=== PATIENT | male | born 1955 | race African-American/Black ===

== ENCOUNTER 2018-04-21 17:15 | Inpatient (IN) ==
--- NOTE | 2018-04-21 18:18 | ED ---
HPI General Chief Complaint: Psychiatric Symptoms Stated Complaint: Psych eval / [facility] Time Seen by Provider: 04/22/18 15:40 Source: patient Mode of arrival: other ([facility]) Limitations: no limitations History of Present Illness HPI Narrative: 63-year-old male with a history of schizophrenia, cocaine use, diabetes, antisocial personality disorder, presents to the emergency department via [facility] for evaluation as a Carter act. Patient says he has not had any of his medications in 2-3 weeks because "the police took him". He does admit to suicidal ideations and states that he would like the police to shoot him. He denies homicidal ideations however. Denies recent alcohol or illicit drug use. His only complaint today is right hip pain. Denies falls and states we' have seen him for it before' and had xrays. MD complaint: suicidal ideation and feels depressed Onset (ago): week(s) Duration: constant History of same: Yes Relieving factors: none Exacerbating factors: medication and therapy Context: not taking psychiatric medications Associated psychiatric symptoms: suicidal ideation Associated symptoms: denies other symptoms Treatments prior to arrival: none If self harm: admits thoughts of self harm Related Data Home Medications Medication Instructions Recorded Confirmed quetiapine [Seroquel] 50 mg PO DAILY 04/21/18 04/21/18 quetiapine [Seroquel] 400 mg PO HS 04/21/18 04/21/18 sertraline [Zoloft] 50 mg PO DAILY 04/21/18 04/21/18 Allergies Allergy/AdvReac Type Severity Reaction Status Date / Time No Known Allergies Allergy Unverified 04/21/18 17:39 Review of Systems ROS: all other systems reviewed are negative [facility] Social History Social History Substance History: Active Abuse Second Hand Smoke Exposure: Yes Smoking Status: Current every day smoker Tobacco Type: Cigarettes How Often Do You Have a Drink Containing Alcohol: Never Recent Travel in [place] within the Last 8 Weeks: No Recent Out of Country Travel within the Last 8 Weeks: No Substance Abuse Detail Marijuana: Substance Use Status: Active Route Used Substance Abuse: Inhalation Last Used: 04/18/18 Crack/Cocaine: Substance Use Status: Active Route Used Substance Abuse: Inhalation Last Used: 04/18/18 Immunization History Tetanus Immunization: Unsure Hx Influenza Vaccine This Season: No Exam Narrative Exam Narrative: GENERAL: Well-developed, well-nourished, anxious SKIN: Focused skin assessment warm/dry. HEAD: Atraumatic. Normocephalic. EYES: Pupils equal and round. No scleral icterus. No injection or drainage. ENT: No nasal bleeding or discharge. Mucous membranes pink and moist. NECK: Trachea midline. No JVD. No lymphadenopathy. No midline tenderness. CARDIOVASCULAR: Regular rate and rhythm. No murmur appreciated. RESPIRATORY: No accessory muscle use. Clear to auscultation. Breath sounds equal bilaterally. Slight wheezing in the left lung dukes GASTROINTESTINAL: Abdomen soft, non-tender, nondistended. Hepatic and splenic margins not palpable. MUSCULOSKELETAL: No obvious deformities. No clubbing. No cyanosis. No edema. TTP to left lateral hip. difficulty with flexion at the hip secondary to pain. NEUROLOGICAL: Awake and alert. No obvious cranial nerve deficits. Motor grossly within normal limits. Normal speech. PSYCHIATRIC: Appropriate mood and affect; Course Initial Documented Vital Signs Temperature 98.2 F 04/21/18 21:00 Pulse Rate 72 04/21/18 21:00 Respiratory Rate 18 04/21/18 21:00 Blood Pressure 183/100 H 04/21/18 21:00 Pulse Oximetry 97 04/21/18 21:00 Last Documented Vital Signs Temperature 97.3 F L 04/25/18 05:49 Pulse Rate 55 L 04/25/18 05:49 Respiratory Rate 16 04/25/18 05:49 Blood Pressure 116/58 L 04/25/18 05:49 Pulse Oximetry 98 04/25/18 05:49 Medical Decision Making [facility] Narrative Medical decision making narrative: 63y male presents to the ED as a BA. Labs were ordered for evaluation. CXR ordered as there was some slight wheezing on exam. Pt c/o hip pain for 'a while' but denies recent trauma. Ordered repeat for evaluation as previous xray demonstrated borderline avascular necrosis. Ensure no hip fracture. The patient was signed out to me at end of shift with lab work pending. 63 YO M under BA with suicidal ideations. History of avascular necrosis. Patient is hypertensive on presentation. Patient takes amlodipine at home, noncompliant secondary to recent arrest. He was administered 10 mg amlodipine by mouth. CBC , CMP without any acute findings. Tox screen positive for cocaine. Patient is medically clear for psychiatric evaluation. Medical Screen Exam Complete: Yes Emergency Medical Condition: Yes Differential Diagnosis Differential Diagnosis: Medication noncompliance, schizophrenia, malingering, depression Medical Records Medical records reviewed: Yes I reviewed the patient's medical records. Last hip xray 08/2017. Will repeat for further evaluation. Lab Data Result diagrams: 04/21/18 19:50 04/23/18 06:56 Lab Results 04/21/18 04/21/18 04/21/18 Range/Units 18:01 19:50 19:50 WBC 6.7 (4.0-11.0) th/mm3 RBC 4.42 L (4.50-5.90) mil/mm3 Hgb 13.9 (13.0-17.0) gm/dL Hct 42.8 (39.0-51.0) % MCV 96.9 (80.0-100.0) fL MCH 31.5 (27.0-34.0) pg MCHC 32.5 (32.0-36.0) % RDW 14.3 (11.6-17.2) % Plt Count 291 (150-450) th/mm3 MPV 7.4 (7.0-11.0) fL Neut % (Auto) 46.6 (16.0-70.0) % Lymph % (Auto) 38.3 (9.0-44.0) % [place] % (Auto) 9.4 H (0.0-8.0) % Eos % (Auto) 4.9 H (0.0-4.0) % Baso % (Auto) 0.8 (0.0-2.0) % Neut # (Auto) 3.1 (1.8-7.7) th/mm3 Lymph # (Auto) 2.6 (1.0-4.8) th/mm3 [place] # (Auto) 0.6 (0.0-0.9) th/mm3 Eos # (Auto) 0.3 (0.0-0.4) th/mm3 Baso # (Auto) 0.1 (0.0-0.2) th/mm3 WBC Differential . Differential Comment Auto diff final Sodium 140 (136-145) meq/L Potassium 4.0 (3.5-5.1) meq/L Chloride 110 H (98-107) meq/L Carbon Dioxide 23.7 (21.0-32.0) meq/L Anion Gap 6 (5-15) meq/L BUN 17 (7-18) mg/dL Creatinine 1.81 H (0.60-1.30) mg/dL Estimated GFR 46 L (>89) mL/min POC Glucose 102 (68-110) mg/dl Random Glucose 72 L (74-106) mg/dL Hemoglobin A1c (4.3-6.0) % Calcium 8.6 (8.5-10.1) mg/dL Total Bilirubin 0.3 (0.2-1.0) mg/dL AST 29 (15-37) U/L ALT 31 (12-78) U/L Alkaline Phosphatase 98 (45-117) U/L Total Protein 8.1 (6.4-8.2) g/dL Albumin 3.2 L (3.4-5.0) g/dL Triglycerides (42-150) mg/dL Cholesterol (120-200) mg/dL LDL Cholesterol, Calc (0-99) mg/dL HDL Cholesterol (40.0-60.0) mg/dL Cholesterol/HDL Ratio Ratio TSH 1.030 (0.358-3.740) uIU/mL Urine Opiates Screen (Neg) Ur Barbiturates Screen (Neg) Ur Amphetamines Screen (Neg) U Benzodiazepines Scrn (Neg) Urine Cocaine Screen (Neg) U Cannabinoids Screen (Neg) Serum Alcohol Less than 3 (0-5) mg/dL 04/21/18 04/22/18 04/22/18 Range/Units 21:20 02:31 09:35 WBC (4.0-11.0) th/mm3 RBC (4.50-5.90) mil/mm3 Hgb (13.0-17.0) gm/dL Hct (39.0-51.0) % MCV (80.0-100.0) fL MCH (27.0-34.0) pg MCHC (32.0-36.0) % RDW (11.6-17.2) % Plt Count (150-450) th/mm3 MPV (7.0-11.0) fL Neut % (Auto) (16.0-70.0) % Lymph % (Auto) (9.0-44.0) % [place] % (Auto) (0.0-8.0) % Eos % (Auto) (0.0-4.0) % Baso % (Auto) (0.0-2.0) % Neut # (Auto) (1.8-7.7) th/mm3 Lymph # (Auto) (1.0-4.8) th/mm3 [place] # (Auto) (0.0-0.9) th/mm3 Eos # (Auto) (0.0-0.4) th/mm3 Baso # (Auto) (0.0-0.2) th/mm3 WBC Differential Differential Comment Sodium (136-145) meq/L Potassium (3.5-5.1) meq/L Chloride (98-107) meq/L Carbon Dioxide (21.0-32.0) meq/L Anion Gap (5-15) meq/L BUN (7-18) mg/dL Creatinine (0.60-1.30) mg/dL Estimated GFR (>89) mL/min POC Glucose 94 90 (68-110) mg/dl Random Glucose (74-106) mg/dL Hemoglobin A1c (4.3-6.0) % Calcium (8.5-10.1) mg/dL Total Bilirubin (0.2-1.0) mg/dL AST (15-37) U/L ALT (12-78) U/L Alkaline Phosphatase (45-117) U/L Total Protein (6.4-8.2) g/dL Albumin (3.4-5.0) g/dL Triglycerides (42-150) mg/dL Cholesterol (120-200) mg/dL LDL Cholesterol, Calc (0-99) mg/dL HDL Cholesterol (40.0-60.0) mg/dL Cholesterol/HDL Ratio Ratio TSH (0.358-3.740) uIU/mL Urine Opiates Screen Neg (Neg) Ur Barbiturates Screen Neg (Neg) Ur Amphetamines Screen Neg (Neg) U Benzodiazepines Scrn Neg (Neg) Urine Cocaine Screen Pos H (Neg) U Cannabinoids Screen Neg (Neg) Serum Alcohol (0-5) mg/dL 04/22/18 04/22/18 04/23/18 Range/Units 11:21 19:50 06:34 WBC (4.0-11.0) th/mm3 RBC (4.50-5.90) mil/mm3 Hgb (13.0-17.0) gm/dL Hct (39.0-51.0) % MCV (80.0-100.0) fL MCH (27.0-34.0) pg MCHC (32.0-36.0) % RDW (11.6-17.2) % Plt Count (150-450) th/mm3 MPV (7.0-11.0) fL Neut % (Auto) (16.0-70.0) % Lymph % (Auto) (9.0-44.0) % [place] % (Auto) (0.0-8.0) % Eos % (Auto) (0.0-4.0) % Baso % (Auto) (0.0-2.0) % Neut # (Auto) (1.8-7.7) th/mm3 Lymph # (Auto) (1.0-4.8) th/mm3 [place] # (Auto) (0.0-0.9) th/mm3 Eos # (Auto) (0.0-0.4) th/mm3 Baso # (Auto) (0.0-0.2) th/mm3 WBC Differential Differential Comment Sodium (136-145) meq/L Potassium (3.5-5.1) meq/L Chloride (98-107) meq/L Carbon Dioxide (21.0-32.0) meq/L Anion Gap (5-15) meq/L BUN (7-18) mg/dL Creatinine (0.60-1.30) mg/dL Estimated GFR (>89) mL/min POC Glucose 76 166 H 74 (68-110) mg/dl Random Glucose (74-106) mg/dL Hemoglobin A1c (4.3-6.0) % Calcium (8.5-10.1) mg/dL Total Bilirubin (0.2-1.0) mg/dL AST (15-37) U/L ALT (12-78) U/L Alkaline Phosphatase (45-117) U/L Total Protein (6.4-8.2) g/dL Albumin (3.4-5.0) g/dL Triglycerides (42-150) mg/dL Cholesterol (120-200) mg/dL LDL Cholesterol, Calc (0-99) mg/dL HDL Cholesterol (40.0-60.0) mg/dL Cholesterol/HDL Ratio Ratio TSH (0.358-3.740) uIU/mL Urine Opiates Screen (Neg) Ur Barbiturates Screen (Neg) Ur Amphetamines Screen (Neg) U Benzodiazepines Scrn (Neg) Urine Cocaine Screen (Neg) U Cannabinoids Screen (Neg) Serum Alcohol (0-5) mg/dL 04/23/18 04/23/18 04/23/18 Range/Units 06:56 06:56 11:29 WBC (4.0-11.0) th/mm3 RBC (4.50-5.90) mil/mm3 Hgb (13.0-17.0) gm/dL Hct (39.0-51.0) % MCV (80.0-100.0) fL MCH (27.0-34.0) pg MCHC (32.0-36.0) % RDW (11.6-17.2) % Plt Count (150-450) th/mm3 MPV (7.0-11.0) fL Neut % (Auto) (16.0-70.0) % Lymph % (Auto) (9.0-44.0) % [place] % (Auto) (0.0-8.0) % Eos % (Auto) (0.0-4.0) % Baso % (Auto) (0.0-2.0) % Neut # (Auto) (1.8-7.7) th/mm3 Lymph # (Auto) (1.0-4.8) th/mm3 [place] # (Auto) (0.0-0.9) th/mm3 Eos # (Auto) (0.0-0.4) th/mm3 Baso # (Auto) (0.0-0.2) th/mm3 WBC Differential Differential Comment Sodium 141 (136-145) meq/L Potassium 3.9 (3.5-5.1) meq/L Chloride 106 (98-107) meq/L Carbon Dioxide 25.8 (21.0-32.0) meq/L Anion Gap 9 (5-15) meq/L BUN 23 H (7-18) mg/dL Creatinine 1.72 H (0.60-1.30) mg/dL Estimated GFR 49 L (>89) mL/min POC Glucose 86 (68-110) mg/dl Random Glucose 76 (74-106) mg/dL Hemoglobin A1c 6.1 H (4.3-6.0) % Calcium 8.4 L (8.5-10.1) mg/dL Total Bilirubin (0.2-1.0) mg/dL AST (15-37) U/L ALT (12-78) U/L Alkaline Phosphatase (45-117) U/L Total Protein (6.4-8.2) g/dL Albumin (3.4-5.0) g/dL Triglycerides 73 (42-150) mg/dL Cholesterol 156 (120-200) mg/dL LDL Cholesterol, Calc 81 (0-99) mg/dL HDL Cholesterol 60.6 H (40.0-60.0) mg/dL Cholesterol/HDL Ratio 2.57 Ratio TSH 1.250 (0.358-3.740) uIU/mL Urine Opiates Screen (Neg) Ur Barbiturates Screen (Neg) Ur Amphetamines Screen (Neg) U Benzodiazepines Scrn (Neg) Urine Cocaine Screen (Neg) U Cannabinoids Screen (Neg) Serum Alcohol (0-5) mg/dL 04/23/18 04/23/18 04/24/18 Range/Units 16:04 20:06 05:52 WBC (4.0-11.0) th/mm3 RBC (4.50-5.90) mil/mm3 Hgb (13.0-17.0) gm/dL Hct (39.0-51.0) % MCV (80.0-100.0) fL MCH (27.0-34.0) pg MCHC (32.0-36.0) % RDW (11.6-17.2) % Plt Count (150-450) th/mm3 MPV (7.0-11.0) fL Neut % (Auto) (16.0-70.0) % Lymph % (Auto) (9.0-44.0) % [place] % (Auto) (0.0-8.0) % Eos % (Auto) (0.0-4.0) % Baso % (Auto) (0.0-2.0) % Neut # (Auto) (1.8-7.7) th/mm3 Lymph # (Auto) (1.0-4.8) th/mm3 [place] # (Auto) (0.0-0.9) th/mm3 Eos # (Auto) (0.0-0.4) th/mm3 Baso # (Auto) (0.0-0.2) th/mm3 WBC Differential Differential Comment Sodium (136-145) meq/L Potassium (3.5-5.1) meq/L Chloride (98-107) meq/L Carbon Dioxide (21.0-32.0) meq/L Anion Gap (5-15) meq/L BUN (7-18) mg/dL Creatinine (0.60-1.30) mg/dL Estimated GFR (>89) mL/min POC Glucose 90 104 87 (68-110) mg/dl Random Glucose (74-106) mg/dL Hemoglobin A1c (4.3-6.0) % Calcium (8.5-10.1) mg/dL Total Bilirubin (0.2-1.0) mg/dL AST (15-37) U/L ALT (12-78) U/L Alkaline Phosphatase (45-117) U/L Total Protein (6.4-8.2) g/dL Albumin (3.4-5.0) g/dL Triglycerides (42-150) mg/dL Cholesterol (120-200) mg/dL LDL Cholesterol, Calc (0-99) mg/dL HDL Cholesterol (40.0-60.0) mg/dL Cholesterol/HDL Ratio Ratio TSH (0.358-3.740) uIU/mL Urine Opiates Screen (Neg) Ur Barbiturates Screen (Neg) Ur Amphetamines Screen (Neg) U Benzodiazepines Scrn (Neg) Urine Cocaine Screen (Neg) U Cannabinoids Screen (Neg) Serum Alcohol (0-5) mg/dL 04/24/18 04/24/18 04/24/18 Range/Units 11:31 15:31 20:45 WBC (4.0-11.0) th/mm3 RBC (4.50-5.90) mil/mm3 Hgb (13.0-17.0) gm/dL Hct (39.0-51.0) % MCV (80.0-100.0) fL MCH (27.0-34.0) pg MCHC (32.0-36.0) % RDW (11.6-17.2) % Plt Count (150-450) th/mm3 MPV (7.0-11.0) fL Neut % (Auto) (16.0-70.0) % Lymph % (Auto) (9.0-44.0) % [place] % (Auto) (0.0-8.0) % Eos % (Auto) (0.0-4.0) % Baso % (Auto) (0.0-2.0) % Neut # (Auto) (1.8-7.7) th/mm3 Lymph # (Auto) (1.0-4.8) th/mm3 [place] # (Auto) (0.0-0.9) th/mm3 Eos # (Auto) (0.0-0.4) th/mm3 Baso # (Auto) (0.0-0.2) th/mm3 WBC Differential Differential Comment Sodium (136-145) meq/L Potassium (3.5-5.1) meq/L Chloride (98-107) meq/L Carbon Dioxide (21.0-32.0) meq/L Anion Gap (5-15) meq/L BUN (7-18) mg/dL Creatinine (0.60-1.30) mg/dL Estimated GFR (>89) mL/min POC Glucose 138 H 96 116 H (68-110) mg/dl Random Glucose (74-106) mg/dL Hemoglobin A1c (4.3-6.0) % Calcium (8.5-10.1) mg/dL Total Bilirubin (0.2-1.0) mg/dL AST (15-37) U/L ALT (12-78) U/L Alkaline Phosphatase (45-117) U/L Total Protein (6.4-8.2) g/dL Albumin (3.4-5.0) g/dL Triglycerides (42-150) mg/dL Cholesterol (120-200) mg/dL LDL Cholesterol, Calc (0-99) mg/dL HDL Cholesterol (40.0-60.0) mg/dL Cholesterol/HDL Ratio Ratio TSH (0.358-3.740) uIU/mL Urine Opiates Screen (Neg) Ur Barbiturates Screen (Neg) Ur Amphetamines Screen (Neg) U Benzodiazepines Scrn (Neg) Urine Cocaine Screen (Neg) U Cannabinoids Screen (Neg) Serum Alcohol (0-5) mg/dL 04/25/18 Range/Units 05:56 WBC (4.0-11.0) th/mm3 RBC (4.50-5.90) mil/mm3 Hgb (13.0-17.0) gm/dL Hct (39.0-51.0) % MCV (80.0-100.0) fL MCH (27.0-34.0) pg MCHC (32.0-36.0) % RDW (11.6-17.2) % Plt Count (150-450) th/mm3 MPV (7.0-11.0) fL Neut % (Auto) (16.0-70.0) % Lymph % (Auto) (9.0-44.0) % [place] % (Auto) (0.0-8.0) % Eos % (Auto) (0.0-4.0) % Baso % (Auto) (0.0-2.0) % Neut # (Auto) (1.8-7.7) th/mm3 Lymph # (Auto) (1.0-4.8) th/mm3 [place] # (Auto) (0.0-0.9) th/mm3 Eos # (Auto) (0.0-0.4) th/mm3 Baso # (Auto) (0.0-0.2) th/mm3 WBC Differential Differential Comment Sodium (136-145) meq/L Potassium (3.5-5.1) meq/L Chloride (98-107) meq/L Carbon Dioxide (21.0-32.0) meq/L Anion Gap (5-15) meq/L BUN (7-18) mg/dL Creatinine (0.60-1.30) mg/dL Estimated GFR (>89) mL/min POC Glucose 103 (68-110) mg/dl Random Glucose (74-106) mg/dL Hemoglobin A1c (4.3-6.0) % Calcium (8.5-10.1) mg/dL Total Bilirubin (0.2-1.0) mg/dL AST (15-37) U/L ALT (12-78) U/L Alkaline Phosphatase (45-117) U/L Total Protein (6.4-8.2) g/dL Albumin (3.4-5.0) g/dL Triglycerides (42-150) mg/dL Cholesterol (120-200) mg/dL LDL Cholesterol, Calc (0-99) mg/dL HDL Cholesterol (40.0-60.0) mg/dL Cholesterol/HDL Ratio Ratio TSH (0.358-3.740) uIU/mL Urine Opiates Screen (Neg) Ur Barbiturates Screen (Neg) Ur Amphetamines Screen (Neg) U Benzodiazepines Scrn (Neg) Urine Cocaine Screen (Neg) U Cannabinoids Screen (Neg) Serum Alcohol (0-5) mg/dL Imaging Data Radiologist's impression: Chest X-Ray 04/21/18 17:53 CONCLUSION: The lungs are clear. Hip X-Ray 04/21/18 18:18 CONCLUSION: 1. Progression of avascular necrosis of the left hip with evidence of mild collapse. 2. New findings in the right hip suggesting early avascular necrosis. Discharge Plan Discharge Disposition Patient Disposition: 30 Still Patient Discharge Condition Condition: Stable Discharge Details Diagnosis: Chronic hip pain, Noncompliance with medication regimen Physicians Team ED Provider: Shayna Bruner ED Midlevel Provider: Amaya Tapia Primary Care Provider: UNKNOWN, Attending Provider: Greg Mauricio Other Providers: Felipe Jones ; [facility] Status ED Status: Left Department Discharge Information Discharge Date/Time: 04/22/18 17:21 Addendum entered and electronically signed by BAKARI Lamar 04/22/18 18: 48: REviewed.
--- NOTE | 2018-04-21 18:41 | XR ---
EXAM DATE: 04/21/2018 5:53 PM EDT AGE/SEX: 63 years / Male INDICATIONS: Short of breath. CLINICAL DATA: This is the patient's initial encounter. Patient reports that signs and symptoms have been present for 1 day and indicates a pain score of 0/10. MEDICAL/SURGICAL HISTORY: None. None. COMPARISON: [facility] [place], CHEST SINGLE AP, 09/01/2017. . FINDINGS: A single AP view of the chest demonstrates the lungs to be symmetrically aerated without evidence of mass, infiltrate or effusion. The cardiomediastinal contours are unremarkable. Osseous structures a re intact. CONCLUSION: The lungs are clear. Electronically signed by: Rohan Leiva MD 04/21/2018 6:39 PM EDT
--- NOTE | 2018-04-21 18:43 | XR ---
EXAM DATE: 04/21/2018 6:18 PM EDT AGE/SEX: 63 years / Male INDICATIONS: Left hip infection, possible necrosis. CLINICAL DATA: This is the patient's initial encounter. Patient reports that signs and symptoms have been present for 3 months and indicates a pain score of 10/10. MEDICAL/SURGICAL HISTORY: None. None. COMPARISON: [facility] [place] LEFT (AP&LAT 2/3VWS) W AP PELVIS, 09/01/2017. . FINDINGS: Prior exam in August 2017 had demonstrated findings suggestive of avascular necrosis of the left hi p. On today's examination, there is increased sclerosis in the femoral head and new sclerosis in the supra-acetabular region with a small supra-acetabular cyst. There is a crescentic area in the superio r femoral head suggesting possible collapse fragment. On the right side, interval development of a crescentic area of lucency in the superior femoral head suggestive of avascular necrosis. Superior cortical margin of the right femoral head is maintained an d no evidence of collapse. The bony pelvic ring is grossly intact. The arcuate lines of the sacrum or symmetric. CONCLUSION: 1. Progression of avascular necrosis of the left hip with evidence of mild collapse. 2. New findings in the right hip suggesting early avascular necrosis. Electronically signed by: Rohan Leiva MD 04/21/2018 6:42 PM EDT
[2018-04-21 20:22] LABS: Baso # (Auto) 0.1 th/mm3 (0.0-0.2); Baso % (Auto) 0.8 % (0.0-2.0); Eos # (Auto) 0.3 th/mm3 (0.0-0.4); Eos % (Auto) 4.9 % (0.0-4.0); Hematocrit 42.8 % (39.0-51.0); Hemoglobin 13.9 gm/dL (13.0-17.0); Lymph # (Auto) 2.6 th/mm3 (1.0-4.8); Lymph % (Auto) 38.3 % (9.0-44.0); Mean Corpuscular HGB Conc 32.5 % (32.0-36.0); Mean Corpuscular Hemoglobin 31.5 pg (27.0-34.0); Mean Corpuscular Volume 96.9 fL (80.0-100.0); Mean Platelet Volume 7.4 fL (7.0-11.0); Mono # (Auto) 0.6 th/mm3 (0.0-0.9); Mono % (Auto) 9.4 % (0.0-8.0); Neut # (Auto) 3.1 th/mm3 (1.8-7.7); Neut % (Auto) 46.6 % (16.0-70.0); Platelet Count 291 th/mm3 (150-450); Red Blood Count 4.42 mil/mm3 (4.50-5.90); Red Cell Distribution Width 14.3 % (11.6-17.2); White Blood Count 6.7 th/mm3 (4.0-11.0)
[2018-04-21 20:47] LABS: Alanine Aminotransferase 31 U/L (12-78)
[2018-04-21 20:53] LABS: Albumin 3.2 g/dL (3.4-5.0); Anion Gap 6 meq/L (5-15); Aspartate Aminotransferase 29 U/L (15-37); Blood Urea Nitrogen 17 mg/dL (7-18); Calcium 8.6 mg/dL (8.5-10.1); Carbon Dioxide 23.7 meq/L (21.0-32.0); Chloride 110 meq/L (98-107); Glomerular Filtration Rate 46 mL/min (>89); Glucose,Random 72 mg/dL (74-106); Sodium 140 meq/L (136-145)
[2018-04-21 20:57] LABS: Alkaline Phosphatase 98 U/L (45-117); Total Protein 8.1 g/dL (6.4-8.2)
[2018-04-21] MEDS ORDERED: amLODIPine 10 MG Tablet PO ONE (21:56)
[2018-04-21 21:58] LABS: Amphetamine Screen,Urine Neg (Neg); Barbiturate Screen,Urine Neg (Neg); Cannabinoid Screen,Urine Neg (Neg); Cocaine Screen,Urine Pos (Neg)
[2018-04-21 22:12] LABS: Opiate Screen,Urine Neg (Neg)
--- NOTE | 2018-04-22 16:05 | ED ---
HPI - Psych - General Source: patient, RN notes reviewed, old records reviewed Mode of arrival: other (VARGAS) - History of Present Illness MD complaint: suicidal ideation, feels depressed Onset (ago): week(s) Duration: constant History of same: Yes Relieving factors: none Exacerbating factors: medication, therapy, drug use Context: recent drug abuse, not taking psychiatric medications, other Associated psychiatric symptoms: depression, suicidal ideation, auditory hallucinations, visual hallucinations Associated symptoms: denies other symptoms, other (Hip pain) Treatments prior to arrival: none If self harm: admits thoughts of self harm - General Chief Complaint: Psychiatric Symptoms Stated Complaint: Psych eval / VCSO Time Seen by Provider: 04/22/18 15:40 - History of Present Illness HPI Narrative: History of Present Illness HPI Narrative: 63-year-old, single, homeless, male, known to [facility], with approximately eight previous admissions to our psychiatric unit, multiple visits to ED, with a history of schizophrenia,record history of schizoaffective disorder, substance induced mood disorder, cocaine use, antisocial personality disorder, with multiple medical problems including, diabetes,pancreatitis, A Fib, Hep C, CKD, HTN , presents to the emergency department via VARGAS for evaluation as a Carter act initiated by ZULEIKA Beltran at [facility]. The report alleges that the patient was arrested for trespassing and the police took his medication so the patient has been without his insulin, without his blood pressure medication and without his psychiatric medications for 2 to 3 weeks. He endorses that he smoked crack yesterday get to get rid of the voices. He also reports visual hallucinations. He reported that he tried to get the police commanding officer to kill him so that because he just wanted to . He has not been taking care of himself. Having difficulty ambulating and that he has not eaten in a few days. Patient was medically cleared including chest x-ray which was negative, x-ray of his right hip showed early avascular necrosis. Current toxicology is positive for cocaine. Patient is seen. Alert and oriented. He is disheveled. His speech is clear but of low tone. Irritable on approach. Poor eye contact. Patient continues to endorse auditory hallucinations, depressed mood, suicidal ideation with no reported plan here in the hospital. He reports that he is unable to care for himself and that he has not had any psychiatric or medical follow-up in several months. (Estela Persaud) - Related Data Home Medications Medication Instructions Recorded Confirmed quetiapine [Seroquel] 50 mg PO DAILY 04/21/18 04/21/18 quetiapine [Seroquel] 400 mg PO HS 04/21/18 04/21/18 sertraline [Zoloft] 50 mg PO DAILY 04/21/18 04/21/18 Allergies Allergy/AdvReac Type Severity Reaction Status Date / Time No Known Allergies Allergy Unverified 04/21/18 17:39 [facility] - History History Provided By: Patient - Medical History Medical History: Medical History (Last Updated 04/21/18 @ 17:42 by Alice Gandara) Kidney failure Liver damage Cardiac abnormality Depression Diabetes HTN (hypertension) Pancreatitis - Surgical History Surgical History: Surgical History (Last Reviewed 04/21/18 @ 17:41 by Alice Gandara) History of orthopedic surgery - Social History I have reviewed the patient's Social History: Yes - Tobacco History Second Hand Smoke Exposure: Yes Tobacco Use In Past 30 Days: Yes Smoking Status: Current every day smoker Tobacco Type: Cigarettes - Alcohol History How Often Do You Have a Drink Containing Alcohol: Never - Substance Use History Substance History: Active Abuse - Substance Use Type Marijuana Status: Active Route Used: Inhalation Last Used: 04/18/18 Crack/Cocaine Status: Active Route Used: Inhalation Last Used: 04/18/18 - Travel History Recent Travel in the [place] Within the Last 8 Weeks: No Recent Travel Out of the Country Within the Last 8 Weeks: No - Immunization History Tetanus Immunization: Unsure Hx Influenza Vaccine This Season: No Psychiatric History - Psychiatric History Psychiatric Treatment History: History of Psychiatric Treatment, History Substance Abuse Treatment, History of Hospitalization in a Psychiatric Facility , History of Community Mental Health Treatment History of Inpatient Treatment: Yes Firearms in Home: No - Psychiatric History Multiple admissions to inpatient psychiatric unit at [facility]. His last admission was in June 2017. Poor medication compliance. 1 previous suicide attempt by hanging is reported. (Estela Persaud) - Legal History Multiple history of incarcerations (Estela Persaud) - Family Psychiatric History None reported (Estela Persaud) Physical Exam - General Limitations: no limitations Mental Status Examination Appearance: Disheveled, Malodorous Consciousness: Alert Orientation: x4 Motor Activity: Abnormal gait Speech: Hesitant, Slow Language: Adequate Fund of Knowledge: Adequate Attention and Concentration: Adequate Memory: Unremarkable Mood: Sad, Irritable Affect: Blunt Thought Process & Associations: Intact, Logical Thought Content: Hallucinations Hallucination Type: None Delusion Type: None Suicidal Ideation: Yes Suicidal Plan: No Suicidal Intention: Yes Homicidal Ideation: No Homicidal Plan: No Homicidal Intention: No Insight: Poor Judgment: Poor Initial Documented Vital Signs Temperature 98.2 F 04/21/18 21:00 Pulse Rate 72 04/21/18 21:00 Respiratory Rate 18 04/21/18 21:00 Blood Pressure 183/100 H 04/21/18 21:00 Pulse Oximetry 97 04/21/18 21:00 Last Documented Vital Signs Temperature 98.3 F 04/22/18 04:30 Pulse Rate 63 04/22/18 15:52 Respiratory Rate 16 04/22/18 15:52 Blood Pressure 135/79 04/22/18 15:52 Pulse Oximetry 98 04/22/18 15:52 MDM - Psych - Diagnosis (1) Substance induced mood disorder Status: Acute (2) Cocaine abuse Status: Acute (3) Schizophrenia Status: Acute - Lab Data Result diagrams: 04/21/18 19:50 04/21/18 19:50 - MDM Narrative Medical decision making narrative: At the time of this evaluation the patient continues to endorse depressed mood , auditory hallucinations, suicidal ideation,hopelessness, He has not been caring for self, not eating, has not taken his psychiatric or medical medications in over 3 weeks. He will be admitted for further evaluation, safety and stabilization. Patient unable to go to [facility] due to multiple medical conditions. I will order a hospitalist consult to manage multiple medical problems. (Estela Persaud) - Lab Data Lab Results 04/21/18 04/21/18 04/21/18 Range/Units 18:01 19:50 19:50 WBC 6.7 (4.0-11.0) th/mm3 RBC 4.42 L (4.50-5.90) mil/mm3 Hgb 13.9 (13.0-17.0) gm/dL Hct 42.8 (39.0-51.0) % MCV 96.9 (80.0-100.0) fL MCH 31.5 (27.0-34.0) pg MCHC 32.5 (32.0-36.0) % RDW 14.3 (11.6-17.2) % Plt Count 291 (150-450) th/mm3 MPV 7.4 (7.0-11.0) fL Neut % (Auto) 46.6 (16.0-70.0) % Lymph % (Auto) 38.3 (9.0-44.0) % Smith % (Auto) 9.4 H (0.0-8.0) % Eos % (Auto) 4.9 H (0.0-4.0) % Baso % (Auto) 0.8 (0.0-2.0) % Neut # (Auto) 3.1 (1.8-7.7) th/mm3 Lymph # (Auto) 2.6 (1.0-4.8) th/mm3 Smith # (Auto) 0.6 (0.0-0.9) th/mm3 Eos # (Auto) 0.3 (0.0-0.4) th/mm3 Baso # (Auto) 0.1 (0.0-0.2) th/mm3 WBC Differential . Differential Comment Auto diff final Sodium 140 (136-145) meq/L Potassium 4.0 (3.5-5.1) meq/L Chloride 110 H (98-107) meq/L Carbon Dioxide 23.7 (21.0-32.0) meq/L Anion Gap 6 (5-15) meq/L BUN 17 (7-18) mg/dL Creatinine 1.81 H (0.60-1.30) mg/dL Estimated GFR 46 L (>89) mL/min POC Glucose 102 (68-110) mg/dl Random Glucose 72 L (74-106) mg/dL Calcium 8.6 (8.5-10.1) mg/dL Total Bilirubin 0.3 (0.2-1.0) mg/dL AST 29 (15-37) U/L ALT 31 (12-78) U/L Alkaline Phosphatase 98 (45-117) U/L Total Protein 8.1 (6.4-8.2) g/dL Albumin 3.2 L (3.4-5.0) g/dL TSH 1.030 (0.358-3.740) uIU/mL Urine Opiates Screen (Neg) Ur Barbiturates Screen (Neg) Ur Amphetamines Screen (Neg) U Benzodiazepines Scrn (Neg) Urine Cocaine Screen (Neg) U Cannabinoids Screen (Neg) Serum Alcohol Less than 3 (0-5) mg/dL 04/21/18 04/22/18 04/22/18 Range/Units 21:20 02:31 09:35 WBC (4.0-11.0) th/mm3 RBC (4.50-5.90) mil/mm3 Hgb (13.0-17.0) gm/dL Hct (39.0-51.0) % MCV (80.0-100.0) fL MCH (27.0-34.0) pg MCHC (32.0-36.0) % RDW (11.6-17.2) % Plt Count (150-450) th/mm3 MPV (7.0-11.0) fL Neut % (Auto) (16.0-70.0) % Lymph % (Auto) (9.0-44.0) % Smith % (Auto) (0.0-8.0) % Eos % (Auto) (0.0-4.0) % Baso % (Auto) (0.0-2.0) % Neut # (Auto) (1.8-7.7) th/mm3 Lymph # (Auto) (1.0-4.8) th/mm3 Smith # (Auto) (0.0-0.9) th/mm3 Eos # (Auto) (0.0-0.4) th/mm3 Baso # (Auto) (0.0-0.2) th/mm3 WBC Differential Differential Comment Sodium (136-145) meq/L Potassium (3.5-5.1) meq/L Chloride (98-107) meq/L Carbon Dioxide (21.0-32.0) meq/L Anion Gap (5-15) meq/L BUN (7-18) mg/dL Creatinine (0.60-1.30) mg/dL Estimated GFR (>89) mL/min POC Glucose 94 90 (68-110) mg/dl Random Glucose (74-106) mg/dL Calcium (8.5-10.1) mg/dL Total Bilirubin (0.2-1.0) mg/dL AST (15-37) U/L ALT (12-78) U/L Alkaline Phosphatase (45-117) U/L Total Protein (6.4-8.2) g/dL Albumin (3.4-5.0) g/dL TSH (0.358-3.740) uIU/mL Urine Opiates Screen Neg (Neg) Ur Barbiturates Screen Neg (Neg) Ur Amphetamines Screen Neg (Neg) U Benzodiazepines Scrn Neg (Neg) Urine Cocaine Screen Pos H (Neg) U Cannabinoids Screen Neg (Neg) Serum Alcohol (0-5) mg/dL 04/22/18 Range/Units 11:21 WBC (4.0-11.0) th/mm3 RBC (4.50-5.90) mil/mm3 Hgb (13.0-17.0) gm/dL Hct (39.0-51.0) % MCV (80.0-100.0) fL MCH (27.0-34.0) pg MCHC (32.0-36.0) % RDW (11.6-17.2) % Plt Count (150-450) th/mm3 MPV (7.0-11.0) fL Neut % (Auto) (16.0-70.0) % Lymph % (Auto) (9.0-44.0) % Smith % (Auto) (0.0-8.0) % Eos % (Auto) (0.0-4.0) % Baso % (Auto) (0.0-2.0) % Neut # (Auto) (1.8-7.7) th/mm3 Lymph # (Auto) (1.0-4.8) th/mm3 Smith # (Auto) (0.0-0.9) th/mm3 Eos # (Auto) (0.0-0.4) th/mm3 Baso # (Auto) (0.0-0.2) th/mm3 WBC Differential Differential Comment Sodium (136-145) meq/L Potassium (3.5-5.1) meq/L Chloride (98-107) meq/L Carbon Dioxide (21.0-32.0) meq/L Anion Gap (5-15) meq/L BUN (7-18) mg/dL Creatinine (0.60-1.30) mg/dL Estimated GFR (>89) mL/min POC Glucose 76 (68-110) mg/dl Random Glucose (74-106) mg/dL Calcium (8.5-10.1) mg/dL Total Bilirubin (0.2-1.0) mg/dL AST (15-37) U/L ALT (12-78) U/L Alkaline Phosphatase (45-117) U/L Total Protein (6.4-8.2) g/dL Albumin (3.4-5.0) g/dL TSH (0.358-3.740) uIU/mL Urine Opiates Screen (Neg) Ur Barbiturates Screen (Neg) Ur Amphetamines Screen (Neg) U Benzodiazepines Scrn (Neg) Urine Cocaine Screen (Neg) U Cannabinoids Screen (Neg) Serum Alcohol (0-5) mg/dL
[2018-04-22] MEDS ORDERED: Aluminum/Magnesium/Simethacone Susp 30 ML UDC PO PRN (16:26)
[2018-04-22] MEDS ORDERED: Acetaminophen 500 MG Tablet PO PRN (18:20)
--- NOTE | 2018-04-22 18:38 | P.CON ---
History of Present Illness Service: Hospitalist Consult date: 04/22/18 Reason for Consult: Medical management. Primary Care Provider: UNKNOWN Chief Complaint: Hip pain History of Present Illness: Ms. Jules is a 63-year-old -[place] male with a history of schizophrenia , cocaine abuse, diabetes mellitus as well as atrial fibrillation who presents to the emergency department under Carter act for an evaluation. Per ED note, patient also had suicidal ideations and stated that he would like the police to shoot him. Hospitalist service was consulted for medical management including hypertension, diabetes mellitus, atrial fibrillation. At the time of this interview, patient complains of left-sided hip pain. Apparently he used to be on pain medication and he was functional. However now he cannot obtain pain medication and it is difficult for him to be functional. He uses cocaine for pain management. No changes in bowel or bladder habits. Review of Systems All other systems reviewed negative except as stated in HPI PMFSH - History History Provided By: Patient - Medical History Medical History: Medical History (Last Updated 04/21/18 @ 17:42 by Alice Gandara) Kidney failure Liver damage Cardiac abnormality Depression Diabetes HTN (hypertension) Pancreatitis - Surgical History Surgical History: Surgical History (Last Reviewed 04/21/18 @ 17:41 by Alice Gandara) History of orthopedic surgery - Tobacco History Second Hand Smoke Exposure: Yes Tobacco Use In Past 30 Days: Yes Smoking Status: Current every day smoker Tobacco Type: Cigarettes - Alcohol History How Often Do You Have a Drink Containing Alcohol: Never - Substance Use History Substance History: Active Abuse - Substance Use Type Marijuana Status: Active Route Used: Inhalation Last Used: 04/18/18 Crack/Cocaine Status: Active Route Used: Inhalation Last Used: 04/18/18 - Travel History Recent Travel in the [place] Within the Last 8 Weeks: No Recent Travel Out of the Country Within the Last 8 Weeks: No - Immunization History Tetanus Immunization: Unsure Hx Influenza Vaccine This Season: No Medications and Allergies Active Medications: Active Medications Al Hydrox/Mg Hydrox/Simethicone (Mag-Al Plus Susp Liq) 30 ml PO Q6H PRN PRN Reason: DYSPEPSIA Al Hydroxide/Mg Hydroxide (Milk Of Magnesia Liq) 30 ml PO Q12H PRN PRN Reason: Mild Constipation Sennosides (Senokot) 17.2 mg PO Q12H PRN PRN Reason: Moderate Constipation Allergies Allergy/AdvReac Type Severity Reaction Status Date / Time No Known Allergies Allergy Unverified 04/21/18 17:39 Home Medications Medication Instructions Recorded Confirmed Type quetiapine [Seroquel] 50 mg PO DAILY 04/21/18 04/21/18 History quetiapine [Seroquel] 400 mg PO HS 04/21/18 04/21/18 History sertraline [Zoloft] 50 mg PO DAILY 04/21/18 04/21/18 History Physical Exam Vital signs: Vital Signs 04/21/18 21:00 04/21/18 22:02 04/22/18 04:30 Temperature 98.2 F 98.2 F 98.3 F Pulse Rate 72 68 72 Respiratory Rate 18 16 18 Blood Pressure 183/100 H 173/85 H 158/95 H Pulse Oximetry 97 97 99 04/22/18 15:52 Temperature Pulse Rate 63 Respiratory Rate 16 Blood Pressure 135/79 Pulse Oximetry 98 Intake & Output 04/21/18 04/22/18 04/22/18 18:59 06:59 18:59 Weight 58.967 kg Narrative: GENERAL: This is a well-nourished, well-developed patient, in no apparent distress. SKIN: No rashes, ecchymoses or lesions. Warm and dry. HEAD: Atraumatic. Normocephalic. No temporal or scalp tenderness. EYES: Pupils equal round and reactive. No injection or drainage. ENT: Nose without bleeding, purulent drainage or septal hematoma. Airway patent. NECK: Trachea midline. No lymphadenopathy. Supple, nontender, no meningeal signs. CARDIOVASCULAR: Regular rate and rhythm without murmurs, gallops, or rubs. No JVD. RESPIRATORY: Clear to auscultation. Breath sounds equal bilaterally. No wheezes , rales, or rhonchi. GASTROINTESTINAL: Abdomen soft, non-tender, nondistended. No guarding. MUSCULOSKELETAL: Extremities without clubbing, cyanosis, or edema. In sitting position, he is unable to lift his left leg up due to hip pain. NEUROLOGICAL: Awake and alert. Cranial nerves II through XII intact. No focal neurological deficits. Normal speech. Assessment and Plan - Assessment (1) Cocaine abuse Code(s): F14.10 - Cocaine abuse, uncomplicated Status: Acute (2) Chronic hip pain Code(s): M25.559 - Pain in unspecified hip; G89.29 - Other chronic pain Status : Acute (3) HTN (hypertension) Code(s): I10 - Essential (primary) hypertension Status: Acute - Plan Mr. Jules is a 63-year-old -[place] male with a history of left-sided hip pain, apparently also a history of hypertension and atrial fibrillation as well as diabetes mellitus who presents to the emergency department under Carter act for an evaluation. Patient reported suicidal ideations. Hospitalist service was consulted for medical management. Hypertension -Patient's blood pressure is now in the normal range after receiving Norvasc 10 mg. -We will continue Norvasc 10 mg daily. -Avoid beta-kyra due to recent cocaine abuse. History of atrial fibrillation History of diabetes mellitus - EKG from 2017 shows NSR. - Not sure if patient truly has Afib. If he did, his [id number] score would be 1-2. - Patient reports loosing 50-60 lbs of weight in the last 2 months. - Last HbA1C 6.7 in 2017. Will wait for HbA1C ordered during this admission. - due to weight loss, he may not need any diabetic meds. His BG is within normal range. - Okay to continue Sliding scale insulin. If BG continues to be normal, d/c sliding scale insulin Left avascular necrosis - X-ray shows worsening avascular necrosis. - We could consider Alendronate for medical management. - However, patient's symptoms as well as X-ray findings are worse. I think it would be reasonable to get an opinion from Orthopedic surgery. - Will add Tramadol 50mg Q6hrs for pain and continue Acetaminophen PRN. Full code. Ambulation. Thank you for the consult. We will continue to follow this patient with you.
[2018-04-22] MEDS ORDERED: Dextrose 50% in Water 50 ML Vial IV.PUSH PRN (18:47)
[2018-04-22] MEDS ORDERED: Insulin NovoLOG Aspart Correctional Sugar Inj SQ SCH (21:00)
[2018-04-22] MEDS: Insulin NovoLOG Aspart Correctional Sugar Inj SQ SCH (21:35)
[2018-04-23] MEDS: Insulin NovoLOG Aspart Correctional Sugar Inj SQ SCH ×5 (05:34→23:27)
[2018-04-23 08:16] LABS: Calcium 8.4 mg/dL (8.5-10.1); Carbon Dioxide 25.8 meq/L (21.0-32.0); Potassium 3.9 meq/L (3.5-5.1)
[2018-04-23 08:26] LABS: Chol/HDL Ratio 2.57 Ratio; HDL Cholesterol 60.6 mg/dL (40.0-60.0); Thyroid Stimulating Hormone 1.25 uIU/mL (0.358-3.740)
--- NOTE | 2018-04-23 11:20 | ECG ---
Date Performed: 04/23/2018 Time Performed: 09:45:17 PTAGE: 63 years EKG: SINUS BRADYCARDIA SEPTAL MYOCARDIAL INFARCTION , OF INDETERMINATE AGE ABNORMAL ECG No signi ficant change from prior electrocardiogram. PREVIOUS TRACING : 07/21/2017 08.45 DOCTOR: Shay Leon Interpretating Date/Time 04/23/2018 11:19:11
--- NOTE | 2018-04-23 11:43 | P.PN ---
Subjective Interval history: Follow-up on patient with left hip pain. Patient is complaining of constant left hip pain and difficulty with ambulation. He denies known history of sickle cell disease. He thinks he may have taken steroids for a long time previously. He also states he has a remote history of heavy alcohol use. Patient is homeless. He uses cocaine in order to manage his left hip pain. He denies any fever or chills. Denies any chest pain or shortness of breath. Physical Exam Vital signs: Vital Signs 04/22/18 15:52 04/23/18 06:00 Temperature 97.5 F L Pulse Rate 63 54 L Respiratory Rate 16 16 Blood Pressure 135/79 129/76 Pulse Oximetry 98 98 Narrative: GENERAL: This is a well-nourished, well-developed -[place] male patient , in no apparent distress. Awake and alert. SKIN: No rash. Warm and dry. HEENT: Atraumatic. Normocephalic. Pupils equal round and reactive. No injection or drainage. Nose without bleeding, purulent drainage or septal hematoma. Airway patent. NECK: Trachea midline. CARDIOVASCULAR: Regular rate and rhythm without murmurs, gallops, or rubs. RESPIRATORY: Clear to auscultation. Breath sounds equal bilaterally. No wheezes , rales, or rhonchi. GASTROINTESTINAL: Abdomen soft, non-tender, nondistended. No guarding. MUSCULOSKELETAL: Extremities without clubbing, cyanosis, or edema. +pain elicited in the left hip with internal and external rotation. NEUROLOGICAL: Awake and alert. Cranial nerves II through XII intact. No focal neurological deficits. Normal speech. PSYCHIATRIC: Calm and cooperative. Results - Labs CBC & Chem 7: 04/21/18 19:50 04/23/18 06:56 Laboratory Results - last 24 hr 04/22/18 04/23/18 04/23/18 19:50 06:34 06:56 Sodium 141 Potassium 3.9 Chloride 106 Carbon Dioxide 25.8 Anion Gap 9 BUN 23 H Creatinine 1.72 H Estimated GFR 49 L POC Glucose 166 H 74 Random Glucose 76 Calcium 8.4 L Triglycerides 73 Cholesterol 156 LDL Cholesterol, Calc 81 HDL Cholesterol 60.6 H Cholesterol/HDL Ratio 2.57 TSH 1.250 04/23/18 11:29 Sodium Potassium Chloride Carbon Dioxide Anion Gap BUN Creatinine Estimated GFR POC Glucose 86 Random Glucose Calcium Triglycerides Cholesterol LDL Cholesterol, Calc HDL Cholesterol Cholesterol/HDL Ratio TSH Assessment and Plan - Assessment (1) Cocaine abuse Code(s): F14.10 - Cocaine abuse, uncomplicated Status: Acute (2) Chronic hip pain Code(s): M25.559 - Pain in unspecified hip; G89.29 - Other chronic pain Status : Acute (3) HTN (hypertension) Code(s): I10 - Essential (primary) hypertension Status: Acute - Plan Mr. Jules is a 63-year-old -[place] male with a history of left-sided hip pain, apparently also a history of hypertension and atrial fibrillation as well as diabetes mellitus who presents to the emergency department under Carter act for an evaluation. Patient reported suicidal ideations. Hospitalist service was consulted for medical management. Hypertension -Patient's blood pressure is now in the normal range after receiving Norvasc 10 mg. -We will continue Norvasc 10 mg daily. -Avoid beta-kyra due to recent cocaine abuse. History of atrial fibrillation History of diabetes mellitus - EKG from 2017 shows NSR. - Not sure if patient truly has Afib. If he did, his [id number] score would be 1-2. - Patient reports losing 50-60 lbs of weight in the last 2 months. - Last HbA1C 6.7 in 2017. Repeat HbA1C 6.1. - due to weight loss, he may not need any diabetic meds. His BG is within normal range. - Okay to continue Sliding scale insulin. If BG continues to be normal, d/c sliding scale insulin Avascular necrosis bilateral hips, left greater than right - X-ray shows worsening avascular necrosis of the left hip with evidence of mild collapse and new findings of early AVN of the right hip - Begin alendronate 10mg dailyfor medical management. - Evaluated by orthopedic service, appreciate assistance. Likely requires total hip arthroplasty as outpatient but poor surgical candidate given medical and compliance issues. Cleared for full wt bearing. - DC tramadol to limit interaction with psychotropic medications. Change to low-dose [place] as needed pain. Unable to give short course of NSAIDs as Ortho recommended secondary to CKD. CKD, creatinine appears to be near baseline -Avoid nephrotoxic agents -Continue to monitor kidney function as indicated Cocaine use UDS +cocaine -Discussed cocaine cessation with patient Full code. Ambulation. Patient appears stable from hospitalist standpoint. [facility] will sign off. Please reconsult if needed. Code Status: FULL Discussed Condition With: patient, nursing staff, Dr. Monte
--- NOTE | 2018-04-23 11:57 | P.CONOP ---
[facility] Orthopedics Consult Note - [facility] Consult date: 04/23/18 Consult reason: joint pain Chief complaint: Adjustment Disorder with depressed mood Narrative: 63-year-old black male who presented to the emergency department on 21 April as a Carter act by the police. He has had suicidal ideation and said he wanted the police to shoot him. He is diagnosed schizophrenic. He states he is also been off his meds for 2-3 weeks. Currently, he is in no acute distress and is comfortable. He states that he has been having left hip pain for approximately 1 year now. He states that it bothers him anytime he moves or tries to walk on it. He states he is unable to bear weight without discomfort. Also states he is unable to move without discomfort. States the pain is primarily right in the groin. Denies any numbness, tingling, or loss of sensation. Denies any weakness. Denies any shortness of breath, fevers, or loss of consciousness. <Francisco Castro - Last Filed: 04/23/18 11:53> Review of Systems Patient denies any fevers, weight loss, headache, visual changes, hearing loss, chest pain, palpitations, shortness of breath, nausea, vomiting, urinary changes , neck or back pain, skin rashes, weakness or numbness of extremities, or depression. All other systems reviewed negative except as stated in HPI <Francisco Castro - Last Filed: 04/23/18 11:53> PMFSH - History History Provided By: Patient - Medical History Medical History: Medical History (Last Reviewed 04/23/18 @ 11:54 by BAKARI Mendez) Kidney failure Liver damage Cardiac abnormality Depression Diabetes HTN (hypertension) Pancreatitis - Surgical History Surgical History: Surgical History (Last Reviewed 04/23/18 @ 11:54 by BAKARI Mendez) History of orthopedic surgery - Social History I have reviewed the patient's Social History: Yes - Tobacco History Second Hand Smoke Exposure: Yes Tobacco Use In Past 30 Days: Yes Smoking Status: Current every day smoker Tobacco Type: Cigarettes - Alcohol History How Often Do You Have a Drink Containing Alcohol: Never - Substance Use History Substance History: Active Abuse - Substance Use Type Marijuana Status: Active Route Used: Inhalation Last Used: 04/18/18 Crack/Cocaine Status: Active Route Used: Inhalation Last Used: 04/18/18 Comment: Patient reports he has a history of substance use in the context of treating his physical pain. Patient was either unable or unwilling to elaborate further. - Travel History Recent Travel in the [place] Within the Last 8 Weeks: No Recent Travel Out of the Country Within the Last 8 Weeks: No - Immunization History Tetanus Immunization: Unsure Hx Influenza Vaccine This Season: No <Francisco Castro - Last Filed: 04/23/18 11:53> - Medical History Medical History: Medical History (Last Reviewed 04/23/18 @ 11:54 by BAKARI Mendez) Kidney failure Liver damage Cardiac abnormality Depression Diabetes HTN (hypertension) Pancreatitis - Surgical History Surgical History: Surgical History (Last Reviewed 04/23/18 @ 11:54 by BAKARI Mendez) History of orthopedic surgery <Felipe Avalos - Last Filed: 04/26/18 17:16> Medications and Allergies Active Medications: Active Medications Acetaminophen (Tylenol) 500 mg PO Q6H PRN PRN Reason: Headache, fever, pain 1-4 Al Hydrox/Mg Hydrox/Simethicone (Mag-Al Plus Susp Liq) 30 ml PO Q6H PRN PRN Reason: DYSPEPSIA Al Hydroxide/Mg Hydroxide (Milk Of Magnesia Liq) 30 ml PO Q12H PRN PRN Reason: Mild Constipation Dextrose (D50w Vial) 50 ml IV.PUSH UNSCH PRN PRN Reason: PER HYPOGLYCEMIA PROTOCOL Diphenhydramine HCl (Benadryl) 50 mg PO HS PRN PRN Reason: INSOMNIA Last Admin: 04/22/18 22:00 Dose: 50 mg Glucagon (Glucagon Inj) 1 mg OTHER PRN PRN PRN Reason: for Hypoglycemia Protocol Hydroxyzine HCl (Atarax) 50 mg PO Q6H PRN PRN Reason: ANXIETY Last Admin: 04/22/18 23:34 Dose: 50 mg Insulin Aspart (Novolog Insulin Correctional Sugar Inj) 0 unit SQ ACHS ROBERTO; Protocol Last Admin: 04/23/18 08:44 Dose: Not Given Sennosides (Senokot) 17.2 mg PO Q12H PRN PRN Reason: Moderate Constipation Tramadol HCl (Ultram) 50 mg PO Q6H PRN PRN Reason: Pain 5-10 Last Admin: 04/23/18 11:13 Dose: 50 mg <Francisco Castro - Last Filed: 04/23/18 11:53> Active Medications: Active Medications Acetaminophen (Tylenol) 500 mg PO Q6H PRN PRN Reason: Headache, fever, pain 1-4 Hydrocodone Bitart/Acetaminophen (Manderson 5/325) 1 tab PO Q6H PRN PRN Reason: PAIN SCALE 6 TO 10 Last Admin: 04/24/18 20:32 Dose: 1 tab Al Hydrox/Mg Hydrox/Simethicone (Mag-Al Plus Susp Liq) 30 ml PO Q6H PRN PRN Reason: DYSPEPSIA Al Hydroxide/Mg Hydroxide (Milk Of Magnesia Liq) 30 ml PO Q12H PRN PRN Reason: Mild Constipation Alendronate Sodium (Fosamax) 10 mg PO DAILY@0600 [facility] Last Admin: 04/25/18 05:49 Dose: 10 mg Dextrose (D50w Vial) 50 ml IV.PUSH UNSCH PRN PRN Reason: PER HYPOGLYCEMIA PROTOCOL Diphenhydramine HCl (Benadryl) 50 mg PO HS PRN PRN Reason: INSOMNIA Last Admin: 04/24/18 20:32 Dose: 50 mg Glucagon (Glucagon Inj) 1 mg OTHER PRN PRN PRN Reason: for Hypoglycemia Protocol Hydroxyzine HCl (Atarax) 50 mg PO Q6H PRN PRN Reason: ANXIETY Last Admin: 04/24/18 20:32 Dose: 50 mg Insulin Aspart (Novolog Insulin Correctional Sugar Inj) 0 unit SQ [facility]; Protocol Last Admin: 04/25/18 11:16 Dose: Not Given Quetiapine Fumarate (Seroquel) 50 mg PO DAILY [facility] Last Admin: 04/25/18 09:11 Dose: 50 mg Quetiapine Fumarate (Seroquel) 400 mg PO HS [facility] Last Admin: 04/24/18 20:32 Dose: 400 mg Sennosides (Senokot) 17.2 mg PO Q12H PRN PRN Reason: Moderate Constipation Sertraline HCl (Zoloft) 50 mg PO DAILY [facility] Last Admin: 04/25/18 09:10 Dose: 50 mg <Felipe Avalos - Last Filed: 04/26/18 17:16> Allergies Allergy/AdvReac Type Severity Reaction Status Date / Time No Known Allergies Allergy Unverified 04/21/18 17:39 Exam Vital signs: Vital Signs 04/22/18 15:52 04/23/18 06:00 Temperature 97.5 F L Pulse Rate 63 54 L Respiratory Rate 16 16 Blood Pressure 135/79 129/76 Pulse Oximetry 98 98 Narrative: General: Well-developed and well-nourished. Resting comfortably in no acute distress Head: Normocephalic and atraumatic Ears: Hearing is intact bilaterally Eyes: Extraocular motion is intact. Pupils are equal round and reactive to light. Neck: No evidence of lymphadenopathy Cranial nerve: II-XII grossly intact Lungs: No use of accessory muscles or breathing and no audible wheezes at bedside Heart: No grade 4 murmur present at bedside Abdomen: Soft and nontender. Musculoskeletal: -LLE: Nontender to palpation of the greater trochanter or lateral leg. He has noticeable discomfort with hip flexion and internal rotation. He does have full sensation distally with strong dorsiflexion. -RLE: Full movement of the hip, knee, ankle and toes with no pain. Full sensation distally <Francisco Castro - Last Filed: 04/23/18 11:53> Vital signs: Intake & Output 04/25/18 04/26/18 04/26/18 18:59 06:59 18:59 Other: Date of Last Bowel Movement 04/24/18 <Felipe Avalos - Last Filed: 04/26/18 17:16> Results - Labs Result Diagrams: 04/21/18 19:50 04/23/18 06:56 Labs: Laboratory Results - last 24 hr 04/22/18 04/23/18 04/23/18 19:50 06:34 06:56 Sodium 141 Potassium 3.9 Chloride 106 Carbon Dioxide 25.8 Anion Gap 9 BUN 23 H Creatinine 1.72 H Estimated GFR 49 L POC Glucose 166 H 74 Random Glucose 76 Calcium 8.4 L Triglycerides 73 Cholesterol 156 LDL Cholesterol, Calc 81 HDL Cholesterol 60.6 H Cholesterol/HDL Ratio 2.57 TSH 1.250 04/23/18 11:29 Sodium Potassium Chloride Carbon Dioxide Anion Gap BUN Creatinine Estimated GFR POC Glucose 86 Random Glucose Calcium Triglycerides Cholesterol LDL Cholesterol, Calc HDL Cholesterol Cholesterol/HDL Ratio TSH - Diagnostic results Hip x-ray: image reviewed <Francisco Castro - Last Filed: 04/23/18 11:53> - Labs Result Diagrams: 04/21/18 19:50 04/23/18 06:56 <Felipe Avalos - Last Filed: 04/26/18 17:16> Assessment and Plan - Problem List (1) Avascular necrosis of bone of left hip Code(s): M87.052 - Idiopathic aseptic necrosis of left femur Status: Acute - Assessment and Plan 1) Left Hip AVN -Treatment options were discussed with the patient. It seems that he is developing avascular necrosis of his left femoral head. This something that can be managed on outpatient basis. Ultimately, he would likely require a total hip arthroplasty for complete pain relief. However, due to his multiple medical and compliance issues, he is not a candidate. I advised him to continue fully weightbearing in the left leg. I believe that nonsteroidal anti- inflammatories could be beneficial in this situation. I advised him to begin taking these. He may fully weight-bear with no restrictions. He is orthopedically cleared for discharge. He does not need any follow-up on an outpatient basis. The above patient was reviewed and discussed with Dr. Avalos and he agrees. <Francisco Castro - Last Filed: 04/23/18 11:53> - Problem List (1) Avascular necrosis of bone of left hip Code(s): M87.052 - Idiopathic aseptic necrosis of left femur Status: Acute - Assessment and Plan History, past medical history, social history, review of systems, physical exam , radiographs, assessment, and plan were reviewed. Plan of care was discussed and established. Plan on nonoperative treatment. At this time patient does not appear to be a surgical candidate for hip replacement. A mid-level provider in my office (nurse practitioner or physician litigation legal assistant) may see this patient on follow-up visits and continue to implement the objectives of this plan including: Starting or adjusting medications, injections, cast application , orthotics, brace application, physical therapy, radiological studies ( including x-ray, MRI, CT, ultrasound, bone scan), vascular studies, neurologic studies, specialist consultation, and proceeding with surgical management, as appropriate. <Felipe Avalos - Last Filed: 04/26/18 17:16>
--- NOTE | 2018-04-23 13:08 | P.HPPSY ---
Provisional Diagnosis Admission Date: April 22, 2018 16:40 Competence Certification of Person's Competence To Provide Express and Informed Consent I have personally examined Mark Jules, a person being served at [facility] on, April 23, 2018 1251. Express and informed consent means consent voluntarily given in writing, by a competent person, after sufficient explanation and disclosure of the subject matter involved to enable the person to make a knowing and willful decision without any element of force, fraud, deceit, duress, or other form of constraint or coercion. This person is 18 years of age or older, is not now known to be incompetent to consent to treatment with a guardian advocate, and does not have a health care surrogate or proxy currently making medical treatment decisions. I have found this person to be one of the following: [X] Competent to provide express and informed consent, as defined above, for voluntary admission to this facility and is competent to provide express and informed consent for treatment. He/she has the consistent capacity to make well reasoned, willful, and knowing decisions concerning his or her medical or mental health treatment. The person fully and consistently understands the purpose of the admission for examination/placement and is fully capable of personally exercising all rights assured [place] Incompetent to provide express and informed consent to voluntary admission, and this is incompetent to provide express and informed consent to treatment. The person must be transferred to involuntary status and a petition for a guardian advocate filed with the Circuit Court. [] Refusing to provide express and informed consent to voluntary admission but is competent to provide express and informed consent for treatment. The person must be discharged or transferred to involuntary status. Form shall be completed within 24 hours of a person's arrival at the receiving facility and filed in the clinical record of each person: 1. Admitted on a voluntary basis 2. Permitted to provide express and informed consent to his/her own treatment 3. Allowed to transfer from involuntary to voluntary status 4. Prior to permitting a person to consent to his or her own treatment after having been previously found incompetent to consent to treatment. History of Present Illness Capacity: Has capacity Chief Complaint: suicidal ideation History of Present Illness: Patient is a 63-year-old male with a history of mood and psychotic disorder. He has an extensive history of substance abuse, specifically cocaine. He is admitted today for suicidal ideation. Patient came from [facility]. Nursing notes a possible history of malingering. During the interview, patient has poor eye contact, is irritable, disorganized, evasive, quite vague. He is perseverative on his pain medication. Patient has been using cocaine on a regular basis and is positive for drug screen. He is a patient had [facility] but has been off his medication for 2-1/2 months. He was on Seroquel 400 mg at night, Seroquel 50 mg in the morning, and Zoloft 50 mg in the morning. Patient admits to suicidal ideation without any intent or plan. Patient is complaining of paranoia seeing men in the bushes that want to hurt him. When asked about voices he says "too many voices, leave me alone." In terms of review of systems, patient is complaining of lower back pain and hip pain Past psych: Patient is vague with his history. He says that he was seeing Dr. shameka Fay at [facility]. Says he has not had suicide attempts. Past medical: He has an extensive medical history including atrial fibrillation , warfarin medication, pancreatitis, sickle cell per patient, avascular necrosis , diabetes, pancreatitis, hep C. It appears he is largely noncompliant with his medications Past Famhx: Denies Past Social: Patient says he has 9 children with whom he has no contact with. Is 1 time. He has no contact with any family members and does not know where they are. He admits to cocaine abuse but minimizes his symptoms. - Inpatient Certification I certify that the inpatient services were ordered in accordance with Medicare regulations governing the order. This includes certification that hospital inpatient services are reasonable and necessary and in the case of services not specified as inpatient-only under 42 CFR 419.22(n), that they are appropriately provided as inpatient services in accordance to with the 2-midnight benchmark under 43 CFR 412.3(e) I certify that inpatient psychiatric hospital services are medically necessary. Evaluation and treatment and/or diagnostic testing are expected to improve the patient's condition. The patient needs on a daily basis, active treatment furnished directly by or requiring the supervision of inpatient psychiatric facility personnel. Estimated Total Length of Stay (Days): 8 Plans for Post Hospital Care: Not yet determined Review of Systems All other systems reviewed negative except as stated in HPI [facility] - History History Provided By: Patient - Medical History Medical History: Medical History (Last Reviewed 04/23/18 @ 13:01 by Casey Evans DO) Kidney failure Liver damage Cardiac abnormality Depression Diabetes HTN (hypertension) Pancreatitis - Surgical History Surgical History: Surgical History (Last Reviewed 04/23/18 @ 13:01 by Casey Evans DO) History of orthopedic surgery - Social History I have reviewed the patient's Social History: Yes - Tobacco History Second Hand Smoke Exposure: Yes Tobacco Use In Past 30 Days: Yes Smoking Status: Current every day smoker Tobacco Type: Cigarettes - Alcohol History How Often Do You Have a Drink Containing Alcohol: Never - Substance Use History Substance History: Active Abuse - Substance Use Type Marijuana Status: Active Route Used: Inhalation Last Used: 04/18/18 Crack/Cocaine Status: Active Route Used: Inhalation Last Used: 04/18/18 Comment: Patient reports he has a history of substance use in the context of treating his physical pain. Patient was either unable or unwilling to elaborate further. - Travel History Recent Travel in the [facility] Within the Last 8 Weeks: No Recent Travel Out of the Country Within the Last 8 Weeks: No - Immunization History Tetanus Immunization: Unsure Hx Influenza Vaccine This Season: No Medications and Allergies Active Medications: Active Medications Acetaminophen (Tylenol) 500 mg PO Q6H PRN PRN Reason: Headache, fever, pain 1-4 Al Hydrox/Mg Hydrox/Simethicone (Mag-Al Plus Susp Liq) 30 ml PO Q6H PRN PRN Reason: DYSPEPSIA Al Hydroxide/Mg Hydroxide (Milk Of Magnesia Liq) 30 ml PO Q12H PRN PRN Reason: Mild Constipation Dextrose (D50w Vial) 50 ml IV.PUSH UNSCH PRN PRN Reason: PER HYPOGLYCEMIA PROTOCOL Diphenhydramine HCl (Benadryl) 50 mg PO HS PRN PRN Reason: INSOMNIA Last Admin: 04/22/18 22:00 Dose: 50 mg Glucagon (Glucagon Inj) 1 mg OTHER PRN PRN PRN Reason: for Hypoglycemia Protocol Hydroxyzine HCl (Atarax) 50 mg PO Q6H PRN PRN Reason: ANXIETY Last Admin: 04/22/18 23:34 Dose: 50 mg Insulin Aspart (Novolog Insulin Correctional Sugar Inj) 0 unit SQ ACHS [facility]ERTO; Protocol Last Admin: 04/23/18 08:44 Dose: Not Given Sennosides (Senokot) 17.2 mg PO Q12H PRN PRN Reason: Moderate Constipation Tramadol HCl (Ultram) 50 mg PO Q6H PRN PRN Reason: Pain 5-10 Last Admin: 04/23/18 11:13 Dose: 50 mg Allergies Allergy/AdvReac Type Severity Reaction Status Date / Time No Known Allergies Allergy Unverified 04/21/18 17:39 Home Medications Medication Instructions Recorded Confirmed Type quetiapine [Seroquel] 50 mg PO DAILY 04/21/18 04/21/18 History quetiapine [Seroquel] 400 mg PO HS 04/21/18 04/21/18 History sertraline [Zoloft] 50 mg PO DAILY 04/21/18 04/21/18 History Results - Labs CBC & Chem 7: 04/21/18 19:50 04/23/18 06:56 Labs: Laboratory Results - last 24 hr 04/22/18 04/23/18 04/23/18 19:50 06:34 06:56 Sodium 141 Potassium 3.9 Chloride 106 Carbon Dioxide 25.8 Anion Gap 9 BUN 23 H Creatinine 1.72 H Estimated GFR 49 L POC Glucose 166 H 74 Random Glucose 76 Calcium 8.4 L Triglycerides 73 Cholesterol 156 LDL Cholesterol, Calc 81 HDL Cholesterol 60.6 H Cholesterol/HDL Ratio 2.57 TSH 1.250 04/23/18 11:29 Sodium Potassium Chloride Carbon Dioxide Anion Gap BUN Creatinine Estimated GFR POC Glucose 86 Random Glucose Calcium Triglycerides Cholesterol LDL Cholesterol, Calc HDL Cholesterol Cholesterol/HDL Ratio TSH Exam Vital signs: Vital Signs 04/22/18 15:52 04/23/18 06:00 Temperature 97.5 F L Pulse Rate 63 54 L Respiratory Rate 16 16 Blood Pressure 135/79 129/76 Pulse Oximetry 98 98 Mental Status Examination Appearance: Disheveled, Malodorous Consciousness: Alert Orientation: x4 Motor Activity: Abnormal gait Speech: Hesitant, Slow Language: Adequate Fund of Knowledge: Adequate Attention and Concentration: Adequate Memory: Unremarkable Mood: Sad, Irritable Affect: Blunt Thought Process & Associations: Intact, Logical Thought Content: Hallucinations Hallucination Type: None Delusion Type: None Suicidal Ideation: Yes Suicidal Plan: No Suicidal Intention: No Homicidal Ideation: No Homicidal Plan: No Homicidal Intention: No Insight: Poor Judgment: Poor Assessment and Plan - Assessment (1) Substance induced mood disorder Code(s): F19.94 - Other psychoactive substance use, unspecified with psychoactive substance-induced mood disorder Status: Acute (2) Cocaine abuse Code(s): F14.10 - Cocaine abuse, uncomplicated Status: Acute (3) Schizophrenia Code(s): F20.9 - Schizophrenia, unspecified Status: Acute - Plan Plan: Case was discussed with nursing. We need an EKG and one will be ordered. Patient needs to be medically cleared before starting Seroquel which can prolong the QTc interval. Admit patient to psychiatry. Patient has capacity Justification for Continued Inpatient Stay: Patient would decompensate in a less restrictive setting
[2018-04-23 13:27] LABS: Hemoglobin A1c 6.1 % (4.3-6.0)
[2018-04-23] MEDS ORDERED: Ibuprofen 600 MG Tablet PO SCH (14:00)
[2018-04-24] MEDS: Insulin NovoLOG Aspart Correctional Sugar Inj SQ SCH ×4 (08:23→21:31)
--- NOTE | 2018-04-24 09:28 | P.PNPSY ---
Subjective Chief Complaint: Schizophrenia Remarks: Reviewed electronic medical records and discussed case with staff. Follow-up was conducted in the day room with ANTONIO Salmon present. Patient is upset today. States the staff is filling out his menu and will not give him any choices. He easily redirected. States that he is hearing voices and is requesting his medications. He is eating. Blood sugars are stable. Has lost 30 pounds over the past four months and is trying to eat slowly. Denies suidical ideations today. Review of Systems All other systems reviewed negative except as stated in HPI Mental Status Examination Appearance: Appropriate, Malodorous Consciousness: Alert Orientation: x4 Motor Activity: Abnormal gait Speech: Hesitant, Slow Language: Adequate Fund of Knowledge: Adequate Attention and Concentration: Adequate Memory: Immediate (intact) Mood: Sad, Irritable Affect: Blunt Thought Process & Associations: Intact, Logical Thought Content: Hallucinations Hallucination Type: None Delusion Type: None Suicidal Ideation: No Suicidal Plan: No Suicidal Intention: No Homicidal Ideation: No Homicidal Plan: No Homicidal Intention: No Insight: Poor Judgment: Poor Assessment and Plan - Assessment (1) Schizophrenia Code(s): F20.9 - Schizophrenia, unspecified Status: Acute - Plan Plan: Continue current treatment plan. Will see psychiatry on Wednesday. Justification for Continued Inpatient Stay: Moving patient to a less restrictive environment may result in his decompensation.
[2018-04-24] MEDS: Sertraline 50 MG Tablet PO SCH (10:22)
[2018-04-24 23:12] VITALS: RESP 16
[2018-04-25 05:51] VITALS: BP 116/58; PULSE 55; TEMP 97.3; O2SAT 98
[2018-04-25] MEDS: Insulin NovoLOG Aspart Correctional Sugar Inj SQ SCH ×2 (07:42→11:16)
[2018-04-25] MEDS ORDERED: QUEtiapine 25 MG Tablet PO SCH (09:00)
[2018-04-25] MEDS: Sertraline 50 MG Tablet PO SCH (09:10)
--- NOTE | 2018-04-25 09:41 | P.DSPSY ---
Psychiatry Discharge Summary Inpatient Psychiatric care?: Yes Advance Directives: No Mental Health Advance Directive: No Health Care Proxy: No - Admission Admission Date: April 22, 2018 16:40 Brief History: Patient is a 63-year-old male with a history of mood and psychotic disorder. He has an extensive history of substance abuse, specifically cocaine. He is admitted today for suicidal ideation. Patient came from [facility]. Nursing notes a possible history of malingering. During the interview, patient has poor eye contact, is irritable, disorganized, evasive, quite vague. He is perseverative on his pain medication. Patient has been using cocaine on a regular basis and is positive for drug screen. He is a patient had [facility] but has been off his medication for 2-1/2 months. He was on Seroquel 400 mg at night, Seroquel 50 mg in the morning, and Zoloft 50 mg in the morning. Patient admits to suicidal ideation without any intent or plan. Patient is complaining of paranoia seeing men in the bushes that want to hurt him. When asked about voices he says "too many voices, leave me alone." In terms of review of systems, patient is complaining of lower back pain and hip pain Past psych: Patient is vague with his history. He says that he was seeing Dr. shameka Fay at [facility]. Says he has not had suicide attempts. Past medical: He has an extensive medical history including atrial fibrillation , warfarin medication, pancreatitis, sickle cell per patient, avascular necrosis , diabetes, pancreatitis, hep C. It appears he is largely noncompliant with his medications Past Famhx: Denies Past Social: Patient says he has 9 children with whom he has no contact with. Is 1 time. He has no contact with any family members and does not know where they are. He admits to cocaine abuse but minimizes his symptoms. Tobacco Use In Past 30 Days: Yes How Often Do You Have a Drink Containing Alcohol: Never Hospital Course: Patient initially admitted by Dr. Evans,'s H&P reviewed. Chart reviewed. Patient seen today by me with RN and medical student Melodie. Patient alert oriented thin and slender Afro-[place] male he initially was cooperative and calm however when I assessed him becoming specific about his history of incarceration, compliance medication, follow-up mental health of the community, and substance abuse she became angrier and angrier more paranoid it appears she [facility] in [facility] fairly recently. It appears she has been off his Seroquel for at least 2 months or so stating increased auditory hallucinations. That he denies being off it except when he was [facility] when the [facility] staff refused he alleges to give him his medication. He gets angry when asked when he resumed it after discharge. He is angry about his being asked about frequency of cocaine use. In any event at the present time patient does denies suicidality who is quite manipulative related to his responses. He became more challenging as I persisted in an attempt to get specific data from him. He finally suggested that I just discharge him. At this time I feel patient is reached maximum benefit of this hospitalization I feel there is a significant degree of manipulation and perhaps malingering with him. Patient is a client at [facility] act to does see a nurse practitioner there. He is on appropriate medications for his mental health issues. Thus patient will be discharged today he will be given his prescriptions for Seroquel and his Zoloft the B no opiates or benzodiazepines prescribed strong recommendation absolute sobriety strong recommendation also follow-up [facility] for substance abuse assessment - Discharge Discharge Date: 04/25/18 - Discharge Diagnosis (1) Cocaine abuse Diagnosis: Secondary Code(s): F14.10 - Status: Acute (2) Noncompliance with medication regimen Diagnosis: Secondary Code(s): Z91.14 - Status: Acute (3) Substance induced mood disorder Diagnosis: Principal Code(s): F19.94 - Status: Acute (4) Schizophrenia Diagnosis: Secondary Code(s): F20.9 - Status: Acute Discharge Disposition: Self - Discharge Instructions Discharge Diet: Regular Diet Activities You Can Perform: Regular- No Restrictions - Discharge Time > 30 minutes Mental Status Examination Appearance: Appropriate, Malodorous Consciousness: Alert Orientation: x4 Motor Activity: Abnormal gait Speech: Hesitant, Slow Language: Adequate Fund of Knowledge: Adequate Attention and Concentration: Adequate Memory: Immediate (intact) Mood: Sad, Irritable Affect: Blunt Thought Process & Associations: Intact, Logical Thought Content: Hallucinations Hallucination Type: None Delusion Type: None Suicidal Ideation: No Suicidal Plan: No Suicidal Intention: No Homicidal Ideation: No Homicidal Plan: No Homicidal Intention: No Insight: Poor Judgment: Poor Discharge/Advance Care Plan - Results Vital Signs: Last Vital Signs Temp 97.3 F L 04/25/18 05:49 Pulse 55 L 04/25/18 05:49 Resp 16 04/25/18 05:49 BP 116/58 L 04/25/18 05:49 Pulse Ox 98 04/25/18 05:49 Lab Results: Abnormal Lab Results 04/24/18 04/24/18 04/24/18 11:31 15:31 20:45 POC Glucose 138 H 96 116 H 04/25/18 05:56 POC Glucose 103 Laboratory Results Hemoglobin A1c 6.1 % (4.3-6.0) H 04/23/18 06:56 Triglycerides 73 mg/dL (42-150) 04/23/18 06:56 Cholesterol 156 mg/dL (120-200) 04/23/18 06:56 LDL Cholesterol, Calc 81 mg/dL (0-99) 04/23/18 06:56 HDL Cholesterol 60.6 mg/dL (40.0-60.0) H 04/23/18 06:56 TSH 1.250 uIU/mL (0.358-3.740) 04/23/18 06:56 Summary of Procedures: None done Imaging: ITS Impressions Chest X-Ray 04/21/18 17:53 CONCLUSION: The lungs are clear. Hip X-Ray 04/21/18 18:18 CONCLUSION: 1. Progression of avascular necrosis of the left hip with evidence of mild collapse. 2. New findings in the right hip suggesting early avascular necrosis. Pending Results: None - Medications Number of antipsychotic medications at discharge: 1 - Discharge Care Plan Goals to Promote Your Health: * To prevent worsening of your condition and complications * To maintain your health at the optimal level Directions to Meet Your Goals: Take your medications as prescribed Follow your dietary instruction Follow activity as directed Keep your appointments as scheduled Take your immunizations and boosters as scheduled If your symptoms worsen call your PCP, if no PCP go to Urgent Care Center or Emergency Room For 15/02 questions related to your inpatient stay or results of tests pending at discharge, please contact Dr. Greg Mauricio MD at Smoking is Dangerous to Your Health. Avoid second hand smoking (4) Schizophrenia Qualifiers: Schizophrenia type: paranoid schizophrenia Qualified Code(s): F20.0 - Paranoid schizophrenia
--- NOTE | 2018-04-25 10:39 | P.TTN ---
- Patient Problems Problems: 1. Discharge planning 2. Medication compliance 3. Knowledge deficit 4. Lack of coping skills - Progress Toward Goals Provider Present: Dr. Bola Davidson Provider Input: New pt, to has yet to assess this day. Psychiatric Counselors Present: Ney Jordan Jr., [facility] Psychiatric Therapist Input: 04/25/18: Pt has not been seen by this therapist as yet. Group Spec/RT/OT/BERUMEN Present: Mukesh Avalos OT, [facility] Group Spec/RT/OT/BERUMEN Input: 04/25/18: Pt has not attended groups, he is new pt. - Discharge Plan 04/25/18: Pt is new admission over this weekend. D/c plan has yet to be determined. - Documentation Teaching Recipient: Patient
== END 2018-04-25 12:40 | disposition home or self-care (01) ==
LOC: NEPD 17:15 → NEDA 04-22 16:40 → H250 04-22 17:44
PROVIDERS: ADMIT Psychiatry & Neurology Psychiatry; ATTEND Psychiatry & Neurology Psychiatry